=== PATIENT | female | born 1960 | race Caucasian/White ===

== ENCOUNTER 2016-11-16 06:56 | Day surgery (SDC) | payer OTHER ==
[2016-11-12 14:38] VITALS: BMI 23.3
[~2016-11-16 06:56] MED LIST: LACTATED RINGERS 1,000 ML IV SCH
[2016-11-16 07:18] VITALS: RESP 16; TEMP 97.1
[2016-11-16] MEDS ORDERED: LIDOCAINE 1% INJ 10MG/ML (20 ML MDV) ONE (07:37)
[2016-11-16] MEDS ORDERED: PROPOFOL 10 MG/ML 20 ML VIAL IV ONE (07:37)
--- NOTE | 2016-11-16 08:07 | P.PCN ---
Date of Procedure: 11/16/16 Preoperative Diagnosis: Screening colonoscopy Postoperative Diagnosis: Tortuous sigmoid colon Procedure(s) Performed: Colonoscopy Anesthesia: MAC Surgeon: Leslie Hutchison Estimated Blood Loss (ml): 0 IV fluids (ml): 450 Pathology: none sent Condition: stable Disposition: PACU Indications for Procedure: Screening colonoscopy Operative Findings: Tortuous sigmoid colon Description of Procedure: Patient was taken to the endoscopy suite and following sedation rectal exam was performed. Patient was noted to have good sphincter tone no masses. Colonoscope was passed through the anus into the rectum. The sigmoid was noted to be tortuous and redundant scope was able to be passed through this to the splenic flexure. Was passed through the splenic flexure transverse colon hepatic flexure right colon down to the area of the cecum. Circumferential observation mucosa did not reveal any lesions of concern in the cecum or right colon. No lesions of concern were noted in the transverse colon. No lesions of concern in the left colon or sigmoid colon. Scope was brought down to the rectum where it was retroflexed. Patient was noted to have no lesions of concern. Proximally 6 minutes were taken to withdraw the scope from the area of the cecum to the rectum. The patient tolerated the procedure in stable condition. Impression/plan 1. Tortuous sigmoid colon 2. No mucosal lesions of concern Plan: 1. Repeat scope 10 years
--- NOTE | 2016-11-16 08:12 | P.DS ---
Providers Attending physician: Leslie Hutchison Primary care physician: Sridhar Taylor Plan - Discharge Summary Discharge Medication List Sertraline [Zoloft] 25 mg PO HS 11/12/16 [History] Follow up Appointment(s)/Referral(s): Leslie Hutchison MD [STAFF PHYSICIAN] - As Needed Discharge Disposition: HOME SELF-CARE
[2016-11-16 08:44] VITALS: BP 113/71; PULSE 68
== END 2016-11-16 09:26 | disposition home or self-care (01) ==
LOC: ORWHC2ENDO 06:56
PROVIDERS: ATTEND Surgery
DX: Z12.11 Encounter for screening for malignant neoplasm of colon (principal); K63.89 Other specified diseases of intestine; Z79.899 Other long term (current) drug therapy
CPT/HCPCS: J2001; J2704; G0121; 99153

== ENCOUNTER 2017-01-06 18:30 | Emergency (ER) | payer OTHER ==
[2017-01-06] MEDS ORDERED: SODIUM CHLORIDE 0.9% 1,000 ML IV ONE (19:13)
[2017-01-06] MEDS ORDERED: KETOROLAC 30 MG/ML 1 ML VIAL IVP STA (19:13)
[2017-01-06] MEDS ORDERED: diphenhydrAMINE 50 MG/ML 1 ML VIAL IVP STA (19:13)
[2017-01-06] MEDS ORDERED: DEXAMETHASONE SOD PHOSPHATE 10 MG/ML 1 ML VIAL IV STA (19:14)
[2017-01-06] MEDS ORDERED: PROMETHAZINE INJ 25 MG in SODIUM CHLORIDE 0.9% 50 ML IVPB STA (19:15)
[2017-01-06 19:35] LABS: Basophils % (A) 0 %; CH 32.2; CHCM 34.2; Eosinophils % (A) 0 %; HCT 42.6 % (34.0-46.0); HDW 2.39; HGB 14.2 gm/dL (11.4-16.0); Luc # (Auto) 0.14; Luc % (Auto) 3; Lymphocytes # (A) 1.2 k/uL (1.0-4.8); Lymphocytes % (A) 26 %; MCH 31.5 pg (25.0-35.0); MCHC 33.3 g/dL (31.0-37.0); MCV 94.5 fL (80.0-100.0); Mean Platelet Volume 8.2; Monocytes # (A) 0.2 k/uL (0-1.0); Monocytes % (A) 5 %; Neutrophils % (A) 66 %; RDW 11.5 % (11.5-15.5); WBC 4.5 k/uL (3.8-10.6); WBC (Perox) 4.74
[2017-01-06 19:45] LABS: Anion Gap 8 mmol/L; Blood Urea Nitrogen 12 mg/dL (7-17); Calcium 8.8 mg/dL (8.4-10.2); Carbon Dioxide 27 mmol/L (22-30); Chloride 105 mmol/L (98-107); Glucose 87 mg/dL (74-99); Non-African American GFR(MDRD) >60 (>60 ml/min/1.73 sqM); Potassium 4.3 mmol/L (3.5-5.1); Sodium 140 mmol/L (137-145)
--- NOTE | 2017-01-06 20:01 | ED ---
General Adult HPI - General Chief complaint: Abdominal Pain Stated complaint: nausea Time Seen by Provider: 01/06/17 19:00 Source: patient, family, RN notes reviewed Mode of arrival: wheelchair Limitations: no limitations - History of Present Illness Initial comments: 56-year-old female presenting for headache and nausea and vomiting. Patient was sent over from [facility] for further evaluation. She states that she became ill about 2 weeks ago with a sinus infection. She has been on a course of amoxicillin which has not improved her symptoms. She states that over the past week she has had a persistent headache which does not seem to be improved with any medications. States last week she was also diagnosed with the flu and finished a course of Tamiflu, although these symptoms seemed to improve. Today she also developed new onset nausea and vomiting again. She followed up with [facility] today who evaluated her with concern she had failed outpatient antibiotics for sinus infection. Patient denies any fevers or chills. She denies a chest pain or shortness of breath. She does state she is actively feeling nauseous at this time. - Related Data Home Medications Medication Instructions Recorded Confirmed Amoxicillin 500 mg PO BID 01/06/17 01/06/17 Ibuprofen [Motrin] 200 - 400 mg PO Q6HR PRN 01/06/17 01/06/17 Previous Rx's Medication Instructions Recorded HYDROcodone/APAP 5-325MG [[place] 1 tab PO Q6HR PRN #12 tab 01/06/17 5-325] Ibuprofen [Motrin] 800 mg PO Q8HR PRN #21 tab 01/06/17 Ondansetron Odt [Zofran Odt] 4 mg PO Q8HR PRN #12 tab 01/06/17 predniSONE 40 mg PO DAILY #10 tab 01/06/17 Allergies Allergy/AdvReac Type Severity Reaction Status Date / Time No Known Allergies Allergy Verified 01/06/17 19:13 Review of Systems ROS Statement: Those systems with pertinent positive or pertinent negative responses have been documented in the HPI. ROS Other: All systems not noted in ROS Statement are negative. Past Medical History Past Medical History: No Reported History History of Any Multi-Drug Resistant Organisms: None Reported Past Surgical History: Section, Cholecystectomy, Hysterectomy Past Psychological History: No Psychological Hx Reported Smoking Status: Never smoker Past Alcohol Use History: None Reported Past Drug Use History: None Reported General Exam - General Exam Comments Initial Comments: General: Awake and Alert. No acute distress. Does not appear acutely ill. Eyes: TOBIN, EOM intact. No nystagmus. No scleral icterus. HENT: Atraumatic, normocephalic. Mucous membranes moist. Trachea midline. Nasal mucosal edema present. Tenderness overlying frontal sinuses. No mastoid tenderness. Neck: The neck is supple, there is no tenderness or JVD. Cardiovascular: Regular rate and rhythm. No murmur, rub, or gallop is appreciated. Distal pulses intact. Respiratory: Lungs are clear to auscultation bilaterally. No wheezes, rales, rhonchi. No respiratory distress. Gastrointestinal: Soft, Nontender. No rebound or guarding. Non-distended. No masses or organomegaly noted. No CVA tenderness. Musculoskeletal: No tenderness. Normal ROM. No gross deformity. No strength deficits. Neurological: A&Ox3. CN II-XII grossly intact, There are no obvious motor or sensory deficits. Coordination appears grossly intact. Speech is normal. No meningeal signs. Skin: Skin is warm and dry and no rashes or lesions are noted. Psychiatric: Cooperative, appropriate mood & affect, normal judgment. Limitations: no limitations Course Vital Signs 01/06/17 01/06/17 01/06/17 18:52 20:45 22:00 Temperature 98.0 F 98.7 F Pulse Rate 67 64 60 Respiratory 18 18 20 Rate Blood Pressure 117/69 116/69 118/68 O2 Sat by Pulse 96 95 95 Oximetry Medical Decision Making - Medical Decision Making 56-year-old female presenting for sinus pressure and headache. Vital signs are stable, afebrile. Physical exam consistent with sinusitis and sinus pressure headache. Medications administered for symptoms. She does not appear acutely septic. No neurological deficits on exam. No visual changes. Physical exam with low suspicion for meningitis or central venous thrombosis or other severe intracranial process at this time. Lab workup was performed with stable CBC and stable BMP. She has no significant risk factors for SAH. She's not had any steroid therapy in the course of her sinusitis management. Throughout her course in the ED multiple medications were administered. Also given dose of Decadron and plan for steroid therapy to help with inflammatory aspect of sinusitis. She is also given Afrin to help with this. After multiple medications patient states that she is feeling much improved. We discussed continued outpatient management of her symptoms, Rx provided. Discussed concerning signs and symptoms for immediate return to the ED. Patient was offered admission for observation, but feels comfortable going home at this time , which I also think is appropriate. Discussed close follow up with PCP. Patient and are agreeable with plan and discharge home. - Lab Data Result diagrams: 01/06/17 19:24 01/06/17 19:24 Lab Results 01/06/17 01/06/17 Range/Units 19:24 19:24 WBC 4.5 (3.8-10.6) k/uL RBC 4.50 (3.80-5.40) m/uL Hgb 14.2 (11.4-16.0) gm/dL Hct 42.6 (34.0-46.0) % MCV 94.5 (80.0-100.0) fL MCH 31.5 (25.0-35.0) pg MCHC 33.3 (31.0-37.0) g/dL RDW 11.5 (11.5-15.5) % Plt Count 130 L (150-450) k/uL Neutrophils % 66 % Lymphocytes % 26 % Monocytes % 5 % Eosinophils % 0 % Basophils % 0 % Neutrophils # 3.0 (1.3-7.7) k/uL Lymphocytes # 1.2 (1.0-4.8) k/uL Monocytes # 0.2 (0-1.0) k/uL Eosinophils # 0.0 (0-0.7) k/uL Basophils # 0.0 (0-0.2) k/uL Sodium 140 (137-145) mmol/L Potassium 4.3 (3.5-5.1) mmol/L Chloride 105 (98-107) mmol/L Carbon Dioxide 27 (22-30) mmol/L Anion Gap 8 mmol/L BUN 12 (7-17) mg/dL Creatinine 0.82 (0.52-1.04) mg/dL Est GFR (MDRD) Af Amer >60 (>60 ml/min/1.73 sqM) Est GFR (MDRD) Non-Af >60 (>60 ml/min/1.73 sqM) Glucose 87 (74-99) mg/dL Calcium 8.8 (8.4-10.2) mg/dL Disposition Clinical Impression: Sinus headache, Sinusitis, Nausea and vomiting Disposition: HOME SELF-CARE Condition: Stable Instructions: Sinusitis (ED), Acute Headache (ED) Additional Instructions: Please use the Afrin 1 spray to each nostril 3x per day for the next 2 days. Prescriptions: HYDROcodone/APAP 5-325MG [[place] 5-325] 1 tab PO Q6HR PRN #12 tab PRN Reason: Pain Ibuprofen [Motrin] 800 mg PO Q8HR PRN #21 tab PRN Reason: Pain Ondansetron Odt [Zofran Odt] 4 mg PO Q8HR PRN #12 tab PRN Reason: Nausea predniSONE 40 mg PO DAILY #10 tab Referrals: Sridhar Taylor MD [Primary Care Provider] - 1-2 days Time of Disposition: 21:43
[2017-01-06] MEDS ORDERED: MORPHINE SULFATE 4 MG/ML SYRINGE IVP STA (20:20)
[2017-01-06] MEDS ORDERED: OXYMETAZOLINE 0.05% NASL SPRAY 15 ML NASAL STA (20:20)
[2017-01-06] MEDS ORDERED: HYDROcodone/APAP 5-325MG 1 EACH TAB PO STA (21:41)
[2017-01-06 22:02] VITALS: BP 118/68; PULSE 60; RESP 20; TEMP 98.7
== END 2017-01-06 22:23 | disposition home or self-care (01) ==
LOC: EC 18:30
DX: J32.9 Chronic sinusitis, unspecified (principal); R11.2 Nausea with vomiting, unspecified
CPT/HCPCS: 36415; 80048; 85025; 96374; 96375; 99284; J2270; J1200; J1100; J2550; J1885

== ENCOUNTER → 2017-02-09 | Outpatient (CLI) | payer OTHER ==
--- NOTE | 2017-02-09 09:25 | MM ---
Reason for exam: follow-up at short interval from prior study. Last mammogram was performed 6 months ago. History: Patient is postmenopausal. Benign excisional biopsy of the right breast, 2006. Took progesterone for 10 years beginning at age 37. Physical Findings: Nurse Summary: 0.5cm nodule in the right breast at 12:30 (nurse dw). MG Diagnostic Mammo RT w CAD CC and MLO view(s) were taken of the right breast. Prior study comparison: August 06, 2016, right breast MG work up mamm w CAD RT. July 30, 2016, bilateral MG screening mammo w CAD. The breast tissue is heterogeneously dense. This may lower the sensitivity of mammography. There is no discrete abnormality including area of concern. No significant new findings when compared with previous films. These results were verbally communicated with the patient and result sheet given to the patient on 02/09/17. ASSESSMENT: Benign, BI-RAD 2 RECOMMENDATION: Return to routine screening mammogram schedule for both breasts. Back on schedule. Manage patient on a clinical basis.
== END | disposition home or self-care (01) ==
LOC: RADMAMWWP 08:23
PROVIDERS: ATTEND Family Medicine
DX: R92.8 Other abnormal and inconclusive findings on diagnostic imaging of breast (principal)

== ENCOUNTER 2018-02-26 01:16 | Emergency (ER) | payer OTHER ==
[2018-02-26 01:29] VITALS: RESP 18
--- NOTE | 2018-02-26 02:22 | XR ---
EXAM: XR Chest, 2 Views CLINICAL HISTORY: ITS.REASON XR Reason: Chest Pain TECHNIQUE: Frontal and lateral views of the chest. COMPARISON: 10/28/13 FINDINGS: Lungs: Unremarkable. No consolidation. Pleural space: Unremarkable. No pneumothorax. Heart: Unremarkable. No cardiomegaly. Mediastinum: Unremarkable. Bones/joints: Unremarkable. IMPRESSION: Normal chest x-rays.
[2018-02-26 02:25] LABS: Basophils # (A) 0.1 k/uL (0-0.2); Basophils % (A) 1 %; Eosinophils # (A) 0.1 k/uL (0-0.7); Eosinophils % (A) 2 %; HCT 39.8 % (34.0-46.0); HGB 13.4 gm/dL (11.4-16.0); Lymphocytes # (A) 1.6 k/uL (1.0-4.8); Lymphocytes % (A) 36 %; MCH 31.1 pg (25.0-35.0); MCHC 33.6 g/dL (31.0-37.0); MCV 92.3 fL (80.0-100.0); Mean Platelet Volume 7.8; Monocytes # (A) 0.3 k/uL (0-1.0); Monocytes % (A) 7 %; Neutrophils # (A) 2.3 k/uL (1.3-7.7); Neutrophils % (A) 53 %; Platelet Count 191 k/uL (150-450); RBC 4.31 m/uL (3.80-5.40); RDW 11.6 % (11.5-15.5); WBC 4.4 k/uL (3.8-10.6)
[2018-02-26 02:31] LABS: ALT 25 U/L (9-52); AST 31 U/L (14-36); Albumin 3.8 g/dL (3.5-5.0); Alkaline Phosphatase 79 U/L (38-126); Amylase 58 U/L (30-110); Anion Gap 11 mmol/L; Blood Urea Nitrogen 24 mg/dL (7-17); Calcium 9.3 mg/dL (8.4-10.2); Carbon Dioxide 24 mmol/L (22-30); Chloride 106 mmol/L (98-107); Glucose 103 mg/dL (74-99); Lipase 150 U/L (23-300); Magnesium 2.1 mg/dL (1.6-2.3); Potassium 3.6 mmol/L (3.5-5.1); Sodium 141 mmol/L (137-145); Total Bilirubin 0.3 mg/dL (0.2-1.3); Total Protein 6.3 g/dL (6.3-8.2)
[2018-02-26 02:33] LABS: Partial Thromboplastin Time 25.5 sec (22.0-30.0)
[2018-02-26 02:47] LABS: Creatine Kinase 131 U/L (30-135)
[2018-02-26 03:00] LABS: Creatine Kinase MB 1.2 ng/mL (0.0-2.4); Troponin I <0.012 ng/mL (0.000-0.034)
--- NOTE | 2018-02-26 04:49 | ED ---
Chest Pain HPI <SimonLevi kate - Last Filed: 02/26/18 06:27> - General Source: patient Mode of arrival: ambulatory Limitations: no limitations <Zoraida Gomez - Last Filed: 02/26/18 18:10> - General Chief Complaint: Chest Pain Stated Complaint: SOB/Abdominal Pain Time Seen by Provider: 02/26/18 01:48 - History of Present Illness Initial Comments: 57-year-old female patient presents to the emergency department today for evaluation of the chest pressure and shortness of breath. Patient states that she was woke from sleep around midnight with an intense pain in her midepigastric region that radiated into her back. Patient states that she was quite short of breath with this. States that she readjusted in bed and try to go back to sleep but was unable to. Patient says that she got up and sat in a reclining chair. States that the pain moved into her chest and she continued to be short of breath. Patient states that she did have some sweats at the time of the pain however states this is not unusual. Patient states that she did feel nauseated. She denies any dizziness or weakness with this. Patient states that she did have a 8 year period where she was a smoker however quit approximately 32 years ago. Patient denies any history of hypertension or diabetes. States that she does have a family history of cardiac disease in her father who at age 59 from a myocardial infarction. Patient denies any recent rash, fever, chills, vomiting, diarrhea, constipation, numbness, tingling , hematuria, dysuria, urinary urgency, urinary frequency, headache, visual changes, or any other complaints. (Zoraida Gomez) - Related Data Home Medications Medication Instructions Recorded Confirmed Amoxicillin 500 mg PO BID 01/06/17 01/06/17 Ibuprofen [Motrin] 200 - 400 mg PO Q6HR PRN 01/06/17 01/06/17 Previous Rx's Medication Instructions Recorded HYDROcodone/APAP 5-325MG [[place] 1 tab PO Q6HR PRN #12 tab 01/06/17 5-325] Ibuprofen [Motrin] 800 mg PO Q8HR PRN #21 tab 01/06/17 Ondansetron Odt [Zofran Odt] 4 mg PO Q8HR PRN #12 tab 01/06/17 predniSONE 40 mg PO DAILY #10 tab 01/06/17 Allergies Allergy/AdvReac Type Severity Reaction Status Date / Time No Known Allergies Allergy Verified 02/26/18 01:29 Review of Systems ROS Other: All systems not noted in ROS Statement are negative. <Levi Villalobos - Last Filed: 02/26/18 06:27> ROS Other: All systems not noted in ROS Statement are negative. <Zoraida Gomez - Last Filed: 02/26/18 18:10> ROS Statement: Those systems with pertinent positive or pertinent negative responses have been documented in the HPI. EKG Findings - EKG Comments: EKG Findings:: EKG obtained at 35 shows sinus bradycardia at the ventricular rate of 53, CT interval 152, QR mormonism 86, QT 468, QTC 439. No evidence of ST elevation or depression. <Zoraida Gomez - Last Filed: 02/26/18 18:10> Past Medical History Past Medical History: No Reported History History of Any Multi-Drug Resistant Organisms: None Reported Past Surgical History: Section, Cholecystectomy, Hysterectomy Past Psychological History: No Psychological Hx Reported Smoking Status: Former smoker Past Alcohol Use History: None Reported Past Drug Use History: None Reported <Zoraida Gomez - Last Filed: 02/26/18 18:10> General Exam Limitations: no limitations General appearance: alert, in no apparent distress, other (This is a well- developed, well-nourished adult female patient in no acute distress. Vital signs upon presentation are temperature 97.2F, pulse 60, respirations 18, blood pressure 126/75, pulse ox 97% on room air.) Eye exam: Present: normal appearance, PERRL, EOMI. Absent: scleral icterus, conjunctival injection, periorbital swelling ENT exam: Present: normal exam, normal oropharynx, mucous membranes moist Respiratory exam: Present: normal lung sounds bilaterally. Absent: respiratory distress, wheezes, rales, rhonchi, stridor Cardiovascular Exam: Present: regular rate, normal rhythm, normal heart sounds. Absent: systolic murmur, diastolic murmur, rubs, gallop, clicks GI/Abdominal exam: Present: soft, normal bowel sounds. Absent: distended, tenderness, guarding, rebound, rigid Neurological exam: Present: alert, oriented X3, CN II-XII intact Psychiatric exam: Present: normal affect, normal mood Skin exam: Present: warm, dry, intact, normal color. Absent: rash <Zoraida Gomez - Last Filed: 02/26/18 18:10> Course <Levi Villalobos - Last Filed: 02/26/18 06:27> <Zoraida Gomez - Last Filed: 02/26/18 18:10> Vital Signs 02/26/18 02/26/18 02/26/18 01:25 02:10 03:08 Temperature 97.2 F L 98.3 F Pulse Rate 60 58 L 58 L Respiratory 18 18 18 Rate Blood Pressure 126/75 112/58 99/60 O2 Sat by Pulse 97 98 98 Oximetry 02/26/18 02/26/18 05:19 06:33 Temperature 98.1 F Pulse Rate 62 61 Respiratory 18 18 Rate Blood Pressure 107/59 108/63 O2 Sat by Pulse 98 97 Oximetry - Reevaluation(s) Reevaluation #1: 02/26/18 03:39 Upon reevaluation patient is feeling much better. I did discuss the results with her and reported that initial labs are unremarkable, and EKG is unremarkable as well. Chest x-ray showed no acute cardiopulmonary process. We did discuss repeat troponin versus admission for observation. Patient would like to have the labs repeated. This will be drawn at 0510. 02/26/18 18:10 (Zoraida Gomez) Chest Pain MDM <Levi Villalobos - Last Filed: 02/26/18 06:27> <Zoraida Gomez - Last Filed: 02/26/18 18:10> - [facility] Care handed over to Dr. Villalobos at 0500. (Zoraida Gomez) Disposition Is patient prescribed a controlled substance at d/c from ED?: No <Levi Villalobos - Last Filed: 02/26/18 06:27> Is patient prescribed a controlled substance at d/c from ED?: No <Zoraida Gomez - Last Filed: 02/26/18 18:10> Clinical Impression: Chest pain Disposition: HOME SELF-CARE Condition: Good Instructions: Chest Pain (ED) Referrals: Sridhar Taylor MD [Primary Care Provider] - 1-2 days
[2018-02-26 06:35] VITALS: BP 108/63; PULSE 61; TEMP 98.1
== END 2018-02-26 06:33 | disposition home or self-care (01) ==
LOC: EC 01:16
DX: R07.89 Other chest pain (principal); R06.02 Shortness of breath; Z82.49 Family history of ischemic heart disease and other diseases of the circulatory system; Z87.891 Personal history of nicotine dependence
CPT/HCPCS: 36415; 71046; 80053; 82150; 82550; 82553; 83690; 83735; 84484; 85025; 85610; 85730; 93005; 99285

== ENCOUNTER → 2018-05-16 | Outpatient (CLI) | payer OTHER ==
--- NOTE | 2018-05-16 10:20 | XR ---
EXAMINATION TYPE: XR Hip Bilateral Complete DATE OF EXAM: 05/16/2018 CLINICAL HISTORY: Bilateral hip pain TECHNIQUE: AP and frogleg views of both hips were obtained. COMPARISON: None. FINDINGS: There is no acute fracture/dislocation evident in either hip. The joint space in both hip s appears narrowed in the cephalomedullary direction. Additionally there is acetabular roof sclerosis . The overlying soft tissue appears unremarkable. IMPRESSION: 1. No acute fracture or dislocation in either hip. 2. 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
== END | disposition home or self-care (01) ==
LOC: RADXRMAIN 09:45
PROVIDERS: ATTEND Physician Assistant
DX: M16.0 Bilateral primary osteoarthritis of hip (principal)
CPT/HCPCS: 73521

== ENCOUNTER → 2019-02-05 | Outpatient (CLI) | payer OTHER ==
--- NOTE | 2019-02-05 18:50 | BD ---
EXAMINATION TYPE: Axial Bone Density DATE OF EXAM: 02/05/2019 COMPARISON: 11/12/2013 CLINICAL HISTORY: 58-year-old female asymptomatic postmenopausal screening Height: 65 IN Weight: 152 LBS FRAX RISK QUESTIONS: Secondary Osteoporosis: 3. Menopause before 45: YES AGE 37 TOTAL HYST RISK FACTORS HISTORY OF: Active: YES Diet low in dairy products/other sources of calcium: YES Postmenopausal woman: AGE 37 MEDICATIONS: Additional Medications: CALCIUM, VIT D, THYROTONE(THYROID SUPPLEMENT), EXAM MEASUREMENTS: Bone mineral densitometry was performed using the [employer] System. Bone mineral density as measured about the Lumbar spine is: ----- L1-L4(G/cm2): 1.129 T Score Values are as follows: ----- L2: -1.1 ----- L3: -0.1 ----- L4: -0.3 ----- L1-L4: -0.4 Bone mineral density has: Increased 3.6% since study of: 11/12/2013 Bone mineral density about the R hip (g/cm2): 0.922 Bone mineral density about the L hip (g/cm2): 0.912 T Score values are as follows: -----R Neck: -0.8 -----L Neck: -0.9 -----R Total: -1.4 -----L Total: -1.1 Bone mineral density has: Decreased -5.5% since study of: 11/12/2013 IMPRESSION: Osteopenia (T Score between -2.5 and -1). There is slightly increased risk of fracture and the patient may be considered for treatment. Re-Screen 2-5 years. NOTE: T-SCORE=SD OF THE YOUNG ADULT MEAN.
--- NOTE | 2019-02-06 10:06 | MM ---
Reason for exam: screening (asymptomatic). Last mammogram was performed 2 years ago. History: Patient is postmenopausal. Benign excisional biopsy of the right breast, 2006. Took progesterone for 10 years beginning at age 37. Physical Findings: A clinical breast exam by your physician is recommended on an annual basis and results should be correlated with mammographic findings. MG Screening Mammo w CAD Bilateral CC and MLO view(s) were taken. Prior study comparison: February 09, 2017, right breast MG diagnostic mammo RT w CAD. August 06, 2016, right breast MG work up mamm w CAD RT. The breast tissue is heterogeneously dense. This may lower the sensitivity of mammography. No suspicious abnormality. No significant changes when compared with prior studies. ASSESSMENT: Negative, BI-RAD 1 RECOMMENDATION: Routine screening mammogram of both breasts in 1 year.
== END | disposition home or self-care (01) ==
LOC: RADMAMWWP 07:49
PROVIDERS: ATTEND Family Medicine
DX: Z12.31 Encounter for screening mammogram for malignant neoplasm of breast (principal); M85.80 Other specified disorders of bone density and structure, unspecified site; Z78.0 Asymptomatic menopausal state
CPT/HCPCS: 77067; 77080

== ENCOUNTER → 2019-12-21 | Outpatient (CLI) | payer OTHER ==
--- NOTE | 2019-12-21 11:21 | XR ---
EXAMINATION TYPE: XR shoulder complete LT DATE OF EXAM: 12/21/2019 CLINICAL HISTORY: Left shoulder pain for one year with no known injury TECHNIQUE: Three views of the left shoulder are obtained. COMPARISON: None. FINDINGS: There is no acute fracture/dislocation evident in the left shoulder. The acromioclavicula r and glenohumeral joint spaces appear aligned. Very minimal acromioclavicular arthropathy with very small osteophytes. The visualized ribs are intact and unremarkable. IMPRESSION: There is no acute fracture or dislocation in the left shoulder. Minimal left acromioclav icular arthropathy.
== END | disposition home or self-care (01) ==
LOC: RADXRMAIN 11:01
PROVIDERS: ATTEND Family Medicine
DX: M19.012 Primary osteoarthritis, left shoulder (principal)

== ENCOUNTER 2021-02-22 19:03 | Emergency (ER) | payer OTHER ==
[2021-02-22 19:09] VITALS: RESP 18
[2021-02-22] MEDS ORDERED: ONDANSETRON 4 MG/2 ML VIAL IVP STA (19:32)
[2021-02-22] MEDS ORDERED: SODIUM CHLORIDE 0.9% 1,000 ML IV STA (19:32)
[2021-02-22 20:07] LABS: Basophils # (A) 0.1 k/uL (0-0.2); Basophils % (A) 1 %; Eosinophils # (A) 0.1 k/uL (0-0.7); Eosinophils % (A) 1 %; HCT 41.6 % (34.0-46.0); HGB 13.5 gm/dL (11.4-16.0); Lymphocytes # (A) 0.9 k/uL (1.0-4.8); Lymphocytes % (A) 20 %; MCH 30.4 pg (25.0-35.0); MCHC 32.5 g/dL (31.0-37.0); MCV 93.7 fL (80.0-100.0); Mean Platelet Volume 8.1; Monocytes # (A) 0.3 k/uL (0-1.0); Monocytes % (A) 7 %; Neutrophils # (A) 3.4 k/uL (1.3-7.7); Neutrophils % (A) 69 %; Platelet Count 315 k/uL (150-450); RBC 4.44 m/uL (3.80-5.40); RDW 11.9 % (11.5-15.5); WBC 4.8 k/uL (3.8-10.6)
--- NOTE | 2021-02-22 20:14 | XR ---
EXAMINATION TYPE: XR chest 2V DATE OF EXAM: 02/22/2021 COMPARISON: 02/26/2018 HISTORY: Chest pain TECHNIQUE: 2 views FINDINGS: There is patchy infiltrate in the lower lung robins bilaterally. This is seen posteriorly a nd anteriorly. There is also some infiltrate in the lateral left upper lobe and right lateral midlung field. Heart size is normal. There are no hilar masses. IMPRESSION: Multiple bilateral pulmonary airspace infiltrates consistent with multifocal pneumonia. T his appears new compared to old exam. Normal heart.
[2021-02-22] MEDS ORDERED: diphenhydrAMINE 50 MG/ML 1 ML VIAL IVP STA (20:29)
[2021-02-22] MEDS ORDERED: KETOROLAC 15 MG/ML 1 ML VIAL IVP STA (20:29)
[2021-02-22] MEDS ORDERED: METOCLOPRAMIDE 5 MG/ML 2 ML VIAL IVP STA (20:29)
[2021-02-22] MEDS ORDERED: DEXAMETHASONE SOD PHOSPHATE 10 MG/ML 1 ML VIAL IV STA (20:30)
[2021-02-22 20:32] LABS: ALT 25 U/L (4-34); AST 31 U/L (14-36); African American GFR (CKD) >90 (>60 ml/min/1.73 sqM); Alkaline Phosphatase 67 U/L (38-126); Anion Gap 4 mmol/L; Blood Urea Nitrogen 14 mg/dL (7-17); Calcium 8.5 mg/dL (8.4-10.2); Carbon Dioxide 28 mmol/L (22-30); Chloride 106 mmol/L (98-107); Creatine Kinase 44 U/L (30-135); Glucose 101 mg/dL (74-99); Lipase 409 U/L (23-300); Non-African American GFR(CKD) >90 (>60 ml/min/1.73 sqM); Potassium 3.6 mmol/L (3.5-5.1); Sodium 138 mmol/L (137-145); Total Bilirubin 0.6 mg/dL (0.2-1.3); Total Protein 5.6 g/dL (6.3-8.2)
[2021-02-22 20:57] LABS: Appearance,Urine Clear (Clear); Bacteria,Urine Few /hpf; Bilirubin,Urine Negative (Negative); Blood,Urine Negative (Negative); Color,Urine Yellow; Glucose,Urine (UA) Negative (Negative); Ketones,Urine Negative (Negative); Leukocyte Esterase,Urine Small (Negative); Mucus,Urine Rare /hpf; Nitrite,Urine Negative (Negative); PH, Urine 6.5 (5.0-8.0); Protein,Urine Negative (Negative); RBC,Urine 1 /hpf (0-5); Specific Gravity,Urine 1.011 (1.001-1.035); Squamous Epithelial Cell,Urine 1 /hpf (0-4); Urobilinogen,Urine <2.0 mg/dL (<2.0); WBC,Urine 4 /hpf (0-5)
--- NOTE | 2021-02-22 21:16 | CT ---
EXAMINATION TYPE: CT brain wo con DATE OF EXAM: 02/22/2021 COMPARISON: None HISTORY: headache CT DLP: 1129.4 mGycm Automated exposure control for dose reduction was used. Ventricles have normal size. There is no mass effect nor midline shift. There is no sign of intracran ial hemorrhage. Calvarium is intact. There is no evidence of cerebral edema. IMPRESSION: Negative CT scan of the brain.
[2021-02-22 21:25] VITALS: BP 107/71; PULSE 67; TEMP 98
[2021-02-22] MEDS ORDERED: HYDROcodone/APAP 5-325MG 1 EACH TAB PO STA (21:57)
--- NOTE | 2021-02-22 22:02 | ED ---
General Adult HPI - General Chief complaint: Nausea/Vomiting/Diarrhea Stated complaint: Nausea, Vomiting, Cough Time Seen by Provider: 02/22/21 19:31 Source: patient Mode of arrival: ambulatory - History of Present Illness Initial comments: Patient is a 6-year-old female with no past medical history presents to the emergency department with reported nausea, vomiting, myalgias and fatigue. Patient reports her symptoms have been going on for the past 3 weeks. They started around the time that her was having similar symptoms. He was tested for Covid and was positive. Patient states she's been tested twice and was negative. She has intense maxillary sinus pain. States she's been using Flonase taking Motrin and Tylenol however continues symptoms. She reports to lack of appetite but continues to eat. Denies any chest pain or shortness of breath. No fevers. Patient denies any neck stiffness. She did have an appointment with her primary care physician via a television set. She was placed on antibiotics for possible sinusitis. States that it did not help her symptoms at all. Denies any visual changes. No other alleviating, precipitating or modifying factors - Related Data Home Medications Medication Instructions Recorded Confirmed Ascorbic Acid [Vitamin C] 1,000 mg PO DAILY 02/22/21 02/22/21 Cholecalciferol [Vitamin D3 (25 25 mcg PO DAILY 02/22/21 02/22/21 Mcg = 1000 Iu)] Zinc 50 mg PO DAILY 02/22/21 02/22/21 Previous Rx's Medication Instructions Recorded HYDROcodone/APAP 5-325MG [[place] 1 tab PO Q6HR PRN 3 Days #12 tab 02/22/21 5-325] Metoclopramide [Reglan] 10 mg PO TID PRN #15 tab 02/22/21 predniSONE [Deltasone] 20 mg PO BID #10 tab 02/22/21 Allergies Allergy/AdvReac Type Severity Reaction Status Date / Time No Known Allergies Allergy Verified 02/22/21 22:09 Review of Systems ROS Statement: Those systems with pertinent positive or pertinent negative responses have been documented in the HPI. ROS Other: All systems not noted in ROS Statement are negative. Past Medical History Past Medical History: No Reported History History of Any Multi-Drug Resistant Organisms: None Reported Past Surgical History: Section, Cholecystectomy, Hysterectomy Past Psychological History: No Psychological Hx Reported Smoking Status: Former smoker Past Alcohol Use History: None Reported Past Drug Use History: None Reported General Exam General appearance: alert, in no apparent distress, other (fatigued) Head exam: Present: atraumatic, normocephalic, normal inspection Eye exam: Present: normal appearance, PERRL, EOMI. Absent: scleral icterus, conjunctival injection, periorbital swelling ENT exam: Present: normal exam, mucous membranes moist Neck exam: Present: normal inspection. Absent: tenderness, meningismus, lymphadenopathy Respiratory exam: Present: normal lung sounds bilaterally. Absent: respiratory distress, wheezes, rales, rhonchi, stridor Cardiovascular Exam: Present: regular rate, normal rhythm, normal heart sounds. Absent: systolic murmur, diastolic murmur, rubs, gallop, clicks GI/Abdominal exam: Present: soft, normal bowel sounds. Absent: distended, tenderness, guarding, rebound, rigid Extremities exam: Present: normal inspection, full ROM, normal capillary refill. Absent: tenderness, pedal edema, joint swelling, calf tenderness Back exam: Present: normal inspection Neurological exam: Present: alert, oriented X3, CN II-XII intact Psychiatric exam: Present: normal affect, normal mood Skin exam: Present: warm, dry, intact, normal color. Absent: rash Course Vital Signs 02/22/21 02/22/21 19:04 21:24 Temperature 97.9 F 98 F Pulse Rate 83 67 Respiratory 18 18 Rate Blood Pressure 102/71 107/71 O2 Sat by Pulse 96 96 Oximetry EKG Findings - EKG Comments: EKG Findings:: EKG demonstrates normal sinus rhythm with ventricular rate of 66.. WI interval 144. QRS 80. QTC of 444. No acute ST segment elevations or depressions Medical Decision Making - Medical Decision Making Upon arrival patient was placed into room 27. There are history and physical exam was performed. IV was established. Laboratory studies were conducted which demonstrates that the patient is positive for Covid. Chest x-ray does demonstrate multiple bilaterally pulmonary airspace infiltrates consistent with multifocal pneumonia. CT of the brain demonstrates no acute findings. Results are discussed the patient. I did recommend hospital admission as she has significant reported fatigue. Patient refuses stating that she wants to go home. I did discuss treatment with pain medications, steroids and antinausea m edications. Patient does not qualify for antibody infusion. She needs follow- up with her primary care doctor in 2-4 days. Return for any new or worsening symptoms. Patient was discharged home in stable condition - Lab Data Result diagrams: 02/22/21 20:02 02/22/21 20:02 Lab Results 02/22/21 02/22/21 02/22/21 Range/Units 20:02 20: 20:02 WBC 4.8 (3.8-10.6) k/uL RBC 4.44 (3.80-5.40) m/uL Hgb 13.5 (11.4-16.0) gm/dL Hct 41.6 (34.0-46.0) % MCV 93.7 (80.0-100.0) fL MCH 30.4 (25.0-35.0) pg MCHC 32.5 (31.0-37.0) g/dL RDW 11.9 (11.5-15.5) % Plt Count 315 (150-450) k/uL MPV 8.1 Neutrophils % 69 % Lymphocytes % 20 % Monocytes % 7 % Eosinophils % 1 % Basophils % 1 % Neutrophils # 3.4 (1.3-7.7) k/uL Lymphocytes # 0.9 L (1.0-4.8) k/uL Monocytes # 0.3 (0-1.0) k/uL Eosinophils # 0.1 (0-0.7) k/uL Basophils # 0.1 (0-0.2) k/uL Sodium (137-145) mmol/L Potassium (3.5-5.1) mmol/L Chloride (98-107) mmol/L Carbon Dioxide (22-30) mmol/L Anion Gap mmol/L BUN (7-17) mg/dL Creatinine (0.52-1.04) mg/dL Est GFR (CKD-EPI)AfAm (>60 ml/min/1.73 sqM) Est GFR (CKD-EPI)NonAf (>60 ml/min/1.73 sqM) Glucose (74-99) mg/dL Plasma Lactic Acid Kevin (0.7-2.0) mmol/L Calcium (8.4-10.2) mg/dL Magnesium (1.6-2.3) mg/dL Total Bilirubin (0.2-1.3) mg/dL AST (14-36) U/L ALT (4-34) U/L Alkaline Phosphatase (38-126) U/L Creatine Kinase (30-135) U/L Troponin I (0.000-0.034) ng/mL Total Protein (6.3-8.2) g/dL Albumin (3.5-5.0) g/dL Lipase (23-300) U/L TSH (0.465-4.680) mIU/L Urine Color Yellow Urine Appearance Clear (Clear) Urine pH 6.5 (5.0-8.0) Ur Specific Crete 1.011 (1.001-1.035) Urine Protein Negative (Negative) Urine Glucose (UA) Negative (Negative) Urine Ketones Negative (Negative) Urine Blood Negative (Negative) Urine Nitrite Negative (Negative) Urine Bilirubin Negative (Negative) Urine Urobilinogen <2.0 (<2.0) mg/dL Ur Leukocyte Esterase Small H (Negative) Urine RBC 1 (0-5) /hpf Urine WBC 4 (0-5) /hpf Ur Squamous Epith Cells 1 (0-4) /hpf Urine Bacteria Few H (None) /hpf Urine Mucus Rare H (None) /hpf Influenza Type A (PCR) Not Detected (Not Detectd) Influenza Type B (PCR) Not Detected (Not Detectd) RSV (PCR) Not Detected (Not Detectd) SARS-CoV-2 (PCR) Detected A (Not Detectd) 02/22/21 02/22/21 02/22/21 Range/Units 20:02 20:02 20:02 WBC (3.8-10.6) k/uL RBC (3.80-5.40) m/uL Hgb (11.4-16.0) gm/dL Hct (34.0-46.0) % MCV (80.0-100.0) fL MCH (25.0-35.0) pg MCHC (31.0-37.0) g/dL RDW (11.5-15.5) % Plt Count (150-450) k/uL MPV Neutrophils % % Lymphocytes % % Monocytes % % Eosinophils % % Basophils % % Neutrophils # (1.3-7.7) k/uL Lymphocytes # (1.0-4.8) k/uL Monocytes # (0-1.0) k/uL Eosinophils # (0-0.7) k/uL Basophils # (0-0.2) k/uL Sodium 138 (137-145) mmol/L Potassium 3.6 (3.5-5.1) mmol/L Chloride 106 (98-107) mmol/L Carbon Dioxide 28 (22-30) mmol/L Anion Gap 4 mmol/L BUN 14 (7-17) mg/dL Creatinine 0.66 (0.52-1.04) mg/dL Est GFR (CKD-EPI)AfAm >90 (>60 ml/min/1.73 sqM) Est GFR (CKD-EPI)NonAf >90 (>60 ml/min/1.73 sqM) Glucose 101 H (74-99) mg/dL Plasma Lactic Acid Kevni 1.3 (0.7-2.0) mmol/L Calcium 8.5 (8.4-10.2) mg/dL Magnesium 2.0 (1.6-2.3) mg/dL Total Bilirubin 0.6 (0.2-1.3) mg/dL AST 31 (14-36) U/L ALT 25 (4-34) U/L Alkaline Phosphatase 67 (38-126) U/L Creatine Kinase 44 (30-135) U/L Troponin I <0.012 (0.000-0.034) ng/mL Total Protein 5.6 L (6.3-8.2) g/dL Albumin 3.0 L (3.5-5.0) g/dL Lipase 409 H (23-300) U/L TSH 2.810 (0.465-4.680) mIU/L Urine Color Urine Appearance (Clear) Urine pH (5.0-8.0) Ur Specific Crete (1.001-1.035) Urine Protein (Negative) Urine Glucose (UA) (Negative) Urine Ketones (Negative) Urine Blood (Negative) Urine Nitrite (Negative) Urine Bilirubin (Negative) Urine Urobilinogen (<2.0) mg/dL Ur Leukocyte Esterase (Negative) Urine RBC (0-5) /hpf Urine WBC (0-5) /hpf Ur Squamous Epith Cells (0-4) /hpf Urine Bacteria (None) /hpf Urine Mucus (None) /hpf Influenza Type A (PCR) (Not Detectd) Influenza Type B (PCR) (Not Detectd) RSV (PCR) (Not Detectd) SARS-CoV-2 (PCR) (Not Detectd) Disposition Clinical Impression: COVID-19, Nausea & vomiting, Myalgia Disposition: HOME SELF-CARE Condition: Stable Additional Instructions: Please follow up with your PCP in 2-4 days. Return to the ED for any new or worsening symptoms. Prescriptions: predniSONE [Deltasone] 20 mg PO BID #10 tab HYDROcodone/APAP 5-325MG [[place] 5-325] 1 tab PO Q6HR PRN 3 Days #12 tab PRN Reason: Pain Metoclopramide [Reglan] 10 mg PO TID PRN #15 tab PRN Reason: GERD Is patient prescribed a controlled substance at d/c from ED?: Yes When asked, does pt state using other controlled substances?: No If prescribed controlled substance>3 days was MAPS reviewed?: Prescribed <3 Days If opioid is for acute pain is fill amount 7 days or less?: Yes If Rx opioid, was Start Talking consent form obtained?: Yes Referrals: Zoraida Roberts PAC [Primary Care Provider] - 1-2 days Time of Disposition: 22:02
== END 2021-02-22 22:25 | disposition home or self-care (01) ==
LOC: SUPCPDRO 19:03 → EC 19:03
DX: U07.1 COVID-19 (principal); M79.10 Myalgia, unspecified site; R11.2 Nausea with vomiting, unspecified; Z87.891 Personal history of nicotine dependence; Z79.899 Other long term (current) drug therapy; Z79.52 Long term (current) use of systemic steroids
CPT/HCPCS: 36415; 93005; 80053; 84443; 82550; 83605; 83690; 83735; 84484; 85025; 81001; 87636; 71046; 70450; 99284; 96374; 96375; 96361; J1200; J1100; J2765; J2405; J1885

== ENCOUNTER → 2022-10-05 | Outpatient (CLI) | payer OTHER ==
--- NOTE | 2022-10-06 16:17 | BD ---
EXAMINATION TYPE: Axial Bone Density DATE OF EXAM: 10/05/2022 COMPARISON: NONE CLINICAL HISTORY: 62 years year old Female. ICD-10 CODE: M81.0 age related osteoporosis Height: 64.5" Weight: 154.8 FRAX RISK QUESTIONS: Alcohol (3 or more units per day): NO Family History (Parent hip fracture): NO Glucocorticoids (More than 3mos): NO (Ex: prednisone, prednisolone, methylprednisolone, dexamethasone, and hydrocortisone). History of Fracture in Adulthood: NO Secondary Osteoporosis: 1. Type 1 Diabetes: NO 2. Hyperthyroidism: NO 3. Menopause before 45: YES, 37 HYSTERECTOMY 4. Malnutrition: NO 5. Chronic liver disease: NO Rheumatoid Arthritis: NO Current Tobacco Use: NO RISK FACTORS HISTORY OF: Hip Fracture (Right/Left): NO Spine Fracture: NO History of Wrist Fracture: NO Surgery to Spine/Hip(right/left)/Wrist (right/left): NO Family History of Osteoporosis: NO Active: YES Diet low in dairy products/other sources of calcium: NO Postmenopausal woman: YES Take estrogen and/or progesterone medications: EST GLORIA ILE How long: ONCE A MONTH FOR ABOUT 2 YEARS Lost more than 2 inches in height since high school: NO Frequent falls: NO Poor Health: GOOD Hyperparathyroidism: NO Adrenal Insufficiency: NO MEDICATIONS: Additional Medications: EST GLORIA ILE CREAM, VITAMIN D, MAGNESIUM, PROBIOTIC, SYMBALTA Additional History: PELVIC FLOOR ISSUES EXAM MEASUREMENTS: Bone mineral densitometry was performed using the [employer] System. Bone mineral density as measured about the Lumbar spine is: ----- L1-L4(G/cm2): 1.108 T Score Values are as follows: ----- L1: -0.6 ----- L2: -1.2 ----- L3: -0.6 ----- L4: -0.3 ----- L1-L4: -0.6 Bone mineral density has: DECREASED -2.1% since study of: 02/05/2019 Bone mineral density about the R hip (g/cm2): 0.897 Bone mineral density about the L hip (g/cm2): 0.905 T Score values are as follows: -----R Neck: -1.0 -----L Neck: -1.0 -----R Total: -1.5 -----L Total: -1.2 Bone mineral density has: DECREASED -1.4% since study of: 02/05/2019 FRAX%s: The graph provided illustrates a 7.6% chance for a major osteoporotic fx and a 0.5% chance fo r the hips probability for fx in 10 years time. IMPRESSION: Osteopenia (T Score between -2.5 and -1). There is slightly increased risk of fracture and the patient may be considered for treatment. Re-Screen 2-5 years. NOTE: T-SCORE=SD OF THE YOUNG ADULT MEAN.
--- NOTE | 2022-10-08 11:29 | MM ---
Reason for Exam: Screening (asymptomatic). Last mammogram was performed 3 year(s) and 8 month(s) ago. Patient History: Menarche at age 14. First Full-Term at age 25. Left ovary removed at age 37. Right ovary removed at age 37. Hysterectomy at age 37. Postmenopausal. Progesterone for 10 years from age 37 until age 47. 2007, Benign Excisional Biopsy on the right side. Risk Values: Amie 5 year model risk: 1.8%. NCI Lifetime model risk: 8.2%. Prior Study Comparison: 08/06/2016 Right Diagnostic Mammogram, [facility]. 02/09/2017 Right Diagnostic Mammogram, [facility]. 02/05/2019 Bilateral Screening Mammogram, [facility]. Tissue Density: The breast tissue is heterogeneously dense. This may lower the sensitivity of mammography. Findings: Analyzed By CAD. There is no suspicious new group of microcalcifications or new suspicious mass in either breast. Overall Assessment: Negative, BI-RAD 1 Management: Screening Mammogram of both breasts in 1 year. A clinical breast exam by your physician is recommended on an annual basis and results should be correlated with mammographic findings. Electronically signed and approved by: Will Boston M.D.
== END | disposition home or self-care (01) ==
LOC: RADMAMWWP 15:48
PROVIDERS: ATTEND Family Medicine
DX: Z12.31 Encounter for screening mammogram for malignant neoplasm of breast (principal); M85.89 Other specified disorders of bone density and structure, multiple sites; M81.0 Age-related osteoporosis without current pathological fracture; Z78.0 Asymptomatic menopausal state; Z98.890 Other specified postprocedural states
CPT/HCPCS: 77063; 77067; 77080